=== PATIENT | male | born 1990 | race Caucasian/White ===

== ENCOUNTER 2020-12-18 08:53 | Emergency (ER) | payer OTHER ==
[~2020-12-18 08:53] MED LIST: FLEXERIL10 MG PO; MEDROL 4MG DOSEP4 MG PO; ZPAK PO
[2020-12-18] MEDS ORDERED: CYCLOBENZAPRINE10 MG PO (09:29)
[2020-12-18] MEDS ORDERED: ETODOLAC500 MG PO (09:29)
== END 2020-12-18 10:26 | disposition home or self-care (01) ==
LOC: FER 08:53
DX: M54.16 Radiculopathy, lumbar region (principal); R03.0 Elevated blood-pressure reading, without diagnosis of hypertension
CPT/HCPCS: 99283; J1885

== ENCOUNTER 2021-01-16 20:56 | Emergency (ER) | payer OTHER ==
[~2021-01-16 20:56] MED LIST changes: +CYCLOBENZAPRINE10 MG PO; +ETODOLAC500 MG PO
[2021-01-17] MEDS ORDERED: CARAFATE S500 MG/TSP PO (00:03)
[2021-01-17] MEDS ORDERED: NEXIUM40 MG PO (00:03)
[2021-01-17] MEDS ORDERED: MUCINEX D TABL1 EACH PO (00:03)
[2021-01-17] MEDS ORDERED: AMOXICILLIN875 MG PO (00:03)
== END 2021-01-17 00:15 | disposition home or self-care (01) ==
LOC: FER 20:56
DX: H66.93 Otitis media, unspecified, bilateral (principal); K21.00 Gastro-esophageal reflux disease with esophagitis, without bleeding
CPT/HCPCS: 70360

== ENCOUNTER 2021-05-14 12:43 | Emergency (ER) | payer OTHER ==
[~2021-05-14 12:43] MED LIST changes: +AMOXICILLIN875 MG PO; +CARAFATE S500 MG/TSP PO; +MUCINEX D TABL1 EACH PO; +NEXIUM40 MG PO
[2021-05-14 14:08] LABS: BASOPHIL 0.5 % (0-2); HCT 45.6 % (42.0-52.0); HGB 16.4 g/dl (13.2-18.0); LYMPHOCYTE 27.3 % (15-48); MCH 31.4 pg (25.0-31.0); MCV 87.2 fL (78.0-100.0); MONOCYTE 9.5 % (0-12); MPV 11.5 fL (6.0-9.5); NEUTROPHIL 60.4 % (41-80); NRBC 0; PLT 196 K/uL (150-400); RBC 5.23 M/uL (4.70-6.00); RDW 12.1 % (11.5-14.0); WBC 7.5 K/uL (4.0-10.5)
[2021-05-14 14:31] LABS: BUN/CREAT RATIO (CALC) 20.5 RATIO; CREATININE 0.78 mg/dL (0.67-1.17); POTASSIUM 4.4 mmol/L (3.5-5.1)
[2021-05-14 14:44] LABS: BILIRUBIN NEGATIVE (NEGATIVE); BLOOD NEGATIVE Ery/uL (NEGATIVE); CLARITY CLEAR (CLEAR); COLOR YELLOW (YELLOW); GLUCOSE (U) NORMAL (NORMAL); LEUKOCYTES NEGATIVE Leu/uL (NEGATIVE); NITRITE NEGATIVE (NEGATIVE); PROTEIN NEGATIVE (NEGATIVE); SPECIFIC GRAVITY 1.025 (1.001-1.030); UROBILINOGEN 0.2 mg/dL (0.2-1.0)
[2021-05-14 15:20] LABS: AMPHETAMINES NEGATIVE (NEGATIVE); BARBITURATES NEGATIVE (NEGATIVE); ECSTASY (MDMA) NEGATIVE (NEGATIVE); MARIJUANA (THC) POSITIVE (NEGATIVE); METHADONE NEGATIVE (NEGATIVE); OPIATES NEGATIVE (NEGATIVE); OXYCODONE NEGATIVE (NEGATIVE)
== END 2021-05-14 17:35 | disposition home or self-care (01) ==
LOC: FER 12:43
PROVIDERS: Nurse Practitioner Family
DX: R07.89 Other chest pain (principal); K21.9 Gastro-esophageal reflux disease without esophagitis; I49.8 Other specified cardiac arrhythmias; F17.210 Nicotine dependence, cigarettes, uncomplicated
CPT/HCPCS: 36415; 71046; 80048; 80305; 81003; 84484; 85025; 93005; J1885

== ENCOUNTER 2022-01-27 12:10 | Emergency (ER) | payer MEDICAID ==
[2022-01-27] MEDS ORDERED: MEDROL 4MG DOSEP4 MG PO (14:16)
[2022-01-27] MEDS ORDERED: NORCO 5-325 TA1 EACH PO (14:16)
[2022-01-27] MEDS ORDERED: CYCLOBENZAPRINE10 MG PO (14:16)
== END 2022-01-27 14:35 | disposition home or self-care (01) ==
LOC: FER 12:10
DX: M54.41 Lumbago with sciatica, right side (principal)
CPT/HCPCS: 96372; 99283; J1100; J1885

== ENCOUNTER 2022-03-04 13:09 | Emergency (ER) | payer OTHER ==
[~2022-03-04 13:09] MED LIST changes: +NORCO 5-325 TA1 EACH PO
[2022-03-04 14:56] LABS: BASOPHIL 0.6 % (0-2); EOSINOPHIL 0.8 % (0-5); HGB 16.7 g/dl (13.2-18.0); LYMPHOCYTE 26.4 % (15-48); MCH 30.8 pg (25.0-31.0); MCHC 36.3 g/dL (32.0-36.0); MCV 84.9 fL (78.0-100.0); MPV 11.3 fL (6.0-9.5); NEUTROPHIL 61.9 % (41-80); NRBC 0; PLT 233 K/uL (150-400); RBC 5.42 M/uL (4.70-6.00); WBC 10.3 K/uL (4.0-10.5)
[2022-03-04 15:23] LABS: ALBUMIN 4.4 g/dL (3.4-5.0); BILIRUBIN - TOTAL 0.4 mg/dL (0.2-1.0); BUN/CREAT RATIO (CALC) 15.7 RATIO; CREATININE 0.83 mg/dL (0.67-1.17); GLOBULIN (CALCULATION) 3.8 g/dL; POTASSIUM 4.1 mmol/L (3.5-5.1); TOTAL PROTEIN 8.2 g/dL (6.4-8.2)
== END 2022-03-04 17:30 | disposition home or self-care (01) ==
LOC: FER 13:09
PROVIDERS: Physician Assistant
DX: R07.9 Chest pain, unspecified (principal); F41.9 Anxiety disorder, unspecified; I10 Essential (primary) hypertension; E11.9 Type 2 diabetes mellitus without complications; F17.200 Nicotine dependence, unspecified, uncomplicated; Z88.8 Allergy status to other drugs, medicaments and biological substances; Z79.899 Other long term (current) drug therapy; Z28.310 Unvaccinated for COVID-19
CPT/HCPCS: 36415; 71046; 80053; 84484; 85025; 85379; 93005

== ENCOUNTER 2022-06-25 20:01 | Emergency (ER) | payer OTHER ==
[~2022-06-25 20:01] MED LIST changes: +ATORVASTATIN CA10 MG PO; +BACLOFEN 20MG T20 MG PO; +JARDIANCE10 MG PO; +MOBIC7.5 MG PO; +NEURONTIN300 MG PO; +PRINIVIL20 MG PO
[2022-06-25 20:32] LABS: BASOPHIL 0.4 % (0-2); EOSINOPHIL 0.7 % (0-5); HCT 42.3 % (42.0-52.0); HGB 15.4 g/dl (13.2-18.0); LYMPHOCYTE 27.6 % (15-48); MCH 31.4 pg (25.0-31.0); MCHC 36.4 g/dL (32.0-36.0); MCV 86.2 fL (78.0-100.0); MONOCYTE 8.7 % (0-12); MPV 11.1 fL (6.0-9.5); NEUTROPHIL 62.3 % (41-80); NRBC 0; PLT 238 K/uL (150-400); RBC 4.91 M/uL (4.70-6.00); RDW 12.1 % (11.5-14.0); WBC 10.7 K/uL (4.0-10.5)
[2022-06-25 20:37] LABS: INR 1.02 (0.9-1.2); PROTHROMBIN TIME 13.1 SECONDS (11.9-13.9); PTT 23.3 SECONDS (24.9-34.6)
[2022-06-25 20:45] LABS: ALBUMIN 4.2 g/dL (3.4-5.0); BILIRUBIN - TOTAL 0.5 mg/dL (0.2-1.0); BUN/CREAT RATIO (CALC) 19.8 RATIO; CREATININE 0.96 mg/dL (0.67-1.17); GLOBULIN (CALCULATION) 3.3 g/dL; POTASSIUM 3.9 mmol/L (3.5-5.1); TOTAL PROTEIN 7.5 g/dL (6.4-8.2)
[2022-06-25 21:59] LABS: CORONAVIRUS 2019 SARS-COV-2 NEGATIVE (NEGATIVE); INFLUENZA A NAA NEGATIVE (NEGATIVE)
[2022-06-25 22:24] LABS: MARIJUANA (THC) POSITIVE (NEGATIVE)
[2022-06-25 22:25] LABS: AMPHETAMINES NEGATIVE (NEGATIVE); BARBITURATES NEGATIVE (NEGATIVE); ECSTASY (MDMA) NEGATIVE (NEGATIVE); METHADONE NEGATIVE (NEGATIVE); OPIATES NEGATIVE (NEGATIVE); OXYCODONE NEGATIVE (NEGATIVE)
== END 2022-06-25 23:10 | disposition home or self-care (01) ==
LOC: FER 20:01
PROVIDERS: Internal Medicine
DX: R07.2 Precordial pain (principal); R00.2 Palpitations; I25.2 Old myocardial infarction; I10 Essential (primary) hypertension; E11.9 Type 2 diabetes mellitus without complications; Z20.822 Contact with and (suspected) exposure to COVID-19; Z87.891 Personal history of nicotine dependence; Z79.84 Long term (current) use of oral hypoglycemic drugs
CPT/HCPCS: 36415; 71045; 80053; 80305; 84484; 85025; 85379; 85610; 85730; 93005; U0002